=== PATIENT | female | born 1985 | race Two or more races ===

== ENCOUNTER 2019-05-20 06:10 | Emergency (ER) | payer BC, OTHER ==
[~2019-05-20] VITALS: Ht 152.4 cm; Wt 90.7 kg
--- NOTE | 2019-05-20 06:27 | NUR ---
PT TO ER BED 7. AAOX4. NOT IN RESP DISTRESS. AMBULATORY W/ LIMP BUT ON STEADY GAIT. C/O L LEG PAIN MAINLY ON R ANKLE S/P TWISTING LEG EXTERNALLY WHILE SKIPPING OVER PUDDLE OF WATER. ROM LIMITED AT KNEE D/T PAIN. SENSATION FELT ON FOOT. WAS AT BEDSIDE FOR EVAL.
--- NOTE | 2019-05-20 06:35 | NUR ---
RADIOLOGY AT BEDSIDE
[2019-05-20 07:20] VITALS: BP 129/69
== END 2019-05-20 07:21 | disposition home or self-care (01) ==
LOC: ER 06:13
DX: S83.8X2A Sprain of other specified parts of left knee, initial encounter (principal); X50.1XXA Overexertion from prolonged static or awkward postures, initial encounter; Y93.89 Activity, other specified; Y92.89 Other specified places as the place of occurrence of the external cause; Y99.8 Other external cause status
CPT/HCPCS: 73564-TC